=== PATIENT | male | born 1965 | race Caucasian/White ===

== ENCOUNTER → 2017-05-17 | Outpatient (CLI) | payer BC ==
[2017-05-17 15:10] VITALS: BP 168/93; PULSE 80; TEMP 98; BMI 46.2
--- NOTE | 2017-05-17 17:11 | P.HPBAR ---
Bariatric H&P - History & Physicial H&P Date: 05/17/17 History & Physicial: Visit/CC: presurgical diet Patient initial contact: Initial weight: 175.087 kg Initial weight in pounds: 386.00 Height: 6 ft Initial BMI: 52.3 Last weight: 235 Current weight: 154.63 kg Current weight in pounds: 340.90 Current BMI: 46.2 [place] body weight (based on NIH guidelines): 80.739 kg Excess body weight loss: 21.6% The patient is a 51 year-old M who presents for Bariatric Assessment. Patient presents today for sleeve gastrectomy consultation. He had a previous LAP- BAND. Patient developed a port site infection which required to have his LAP- BAND system removed in September 2015. At the time of his LAP-BAND removed patient weighed approximately 235 pounds. Today he weighs 340 pounds. When his LAP- BAND was initially placed a weighted approximate 400 pounds. The patient describes worsening pain due to his foot arthritis with his weight gain. He also feels that he is much more sedentary and has a tough time moving due to his weight gain. The patient wished to have a sleeve gastrectomy performed earlier but due to complications with his work schedule he was unable to schedule for a sleeve gastrectomy. Past Medical History Past Medical History: No Reported History, Osteoarthritis (OA) Additional Past Medical History / Comment(s): Currently having difficulting eating solid food, able to tolerate creamed soup and liquids and having fevers. Constipation, twisted bowel - resolved History of Any Multi-Drug Resistant Organisms: None Reported, MRSA Year Discovered:: 08/06/15 MDRO Source:: Abdomen Past Surgical History: Bariatric Surgery, Cholecystectomy Additional Past Surgical History / Comment(s): LAP BAND,[place] Apr,EGD W / BILIARY STENT 05-05-15 lap band removed - Past Anesthesia/Blood Transfusion Reactions: No Reported Reaction Additional Past Anesthesia/Blood Transfusion Reaction / Comm: NEVER HAS HAD B/P TRANSFUSION Past Psychological History: No Psychological Hx Reported Smoking Status: Current every day smoker Past Alcohol Use History: Occasional Additional Past Alcohol Use History / Comment(s): STARTED 1985 Past Drug Use History: None Reported - Past Family History Mother Family Medical History: Cancer Father Family Medical History: Diabetes Mellitus Additional Family Medical History / Comment(s): cardiac stents Surgical - Exam Vital Signs Temp Pulse BP 98 F 80 168/93 05/17/17 15:06 05/17/17 15:06 05/17/17 15:06 - General well developed, no distress - Eyes PERRL - ENT normal pinna - Neck no masses - Respiratory normal expansion - Cardiovascular Rhythm: regular - Abdomen Abdomen: soft, non tender Bariatric Assessment & Plan Plan: Morbid obesity with BMI 46. Patient has had 115 pound weight gain since his LAP -BAND was removed. Patient has a good understanding of the sleeve gastrectomy. We went over the risks and benefits of procedure including possible gastric staple line disruption, bleeding or perforation. The patient will be scheduled for EGD. We will attempt to obtain insurance authorization for sleeve gastrectomy. Bariatric Checklist Checklist: Plan: Checklist: EGD: 1. Hiatal hernia: 2. H. Pylori: HgbA1c: Vitamin D: Smoking: Current every day smoker Primary care physician referral: dr navarro Psychiatry clearance: Cardiology clearance: Sleep study: Diet journal: VTE risk score: VTE risk level: Rehab needs at discharge:
== END | disposition home or self-care (01) ==
LOC: BARWHC3 13:51
PROVIDERS: ATTEND Surgery
DX: Z01.818 Encounter for other preprocedural examination (principal); E66.01 Morbid (severe) obesity due to excess calories; F17.200 Nicotine dependence, unspecified, uncomplicated; Z68.42 Body mass index [BMI] 45.0-49.9, adult; Z98.84 Bariatric surgery status; Z90.49 Acquired absence of other specified parts of digestive tract
CPT/HCPCS: 99211

== ENCOUNTER 2017-05-25 09:50 | Day surgery (SDC) | payer BC ==
[2017-05-21 15:48] VITALS: BMI 46.5
[~2017-05-25 09:50] MED LIST: LACTATED RINGERS 1,000 ML IV SCH
[2017-05-25] MEDS ORDERED: LIDOCAINE 1% 20 ML VIAL (10MG/ML) FOR IV START INTRADERMA ONE (10:06)
[2017-05-25 10:16] VITALS: TEMP 97.8
[2017-05-25] MEDS ORDERED: PROPOFOL 10 MG/ML 20 ML VIAL IV ONE (11:20)
[2017-05-25] MEDS ORDERED: LABETALOL 5 MG/ML VIAL MDV ONE (11:20)
[2017-05-25] MEDS ORDERED: LIDOCAINE 1% INJ 10MG/ML (20 ML MDV) ONE (11:20)
[2017-05-25] MEDS ORDERED: MIDAZOLAM 2 MG/2 ML VIAL ONE (11:20)
[2017-05-25] MEDS ORDERED: KETAMINE 10 MG/ML 20 ML VIAL ONE (11:20)
[2017-05-25] MEDS ORDERED: fentaNYL (PF) 50 MCG/ML 2 ML AMP ONE (11:20)
[2017-05-25] MEDS ORDERED: GLYCOPYRROLATE 0.2 MG/ML 2 ML VIAL ONE (11:20)
--- NOTE | 2017-05-25 11:33 | P.GSHP ---
History of Present Illness H&P Date: 05/25/17 Chief Complaint: GERD, morbid obesity is a 51-year-old male who presents today for EGD. He's had issues with GERD. He is currently undergoing workup for sleeve gastrectomy. His BMI is 47. Past Medical History Past Medical History: GERD/Reflux, Hypertension, Osteoarthritis (OA), Thyroid Disorder Additional Past Medical History / Comment(s): no current rx for BP, bone spur in left foot History of Any Multi-Drug Resistant Organisms: None Reported, MRSA Date of last positivie culture/infection: 08/06/15 MDRO Source:: Abdomen Past Surgical History: Bariatric Surgery, Cholecystectomy Additional Past Surgical History / Comment(s): lap band/later removed, surgery to repair liver duct leak(stent)-stent later removed Past Anesthesia/Blood Transfusion Reactions: No Reported Reaction Additional Past Anesthesia/Blood Transfusion Reaction / Comment(s): . Smoking Status: Current every day smoker - Past Family History Mother Family Medical History: Cancer Father Family Medical History: Diabetes Mellitus Additional Family Medical History / Comment(s): cardiac stents Medications and Allergies Home Medications Medication Instructions Recorded Confirmed Type traMADol HCL [Ultram] 50 mg PO BID PRN 05/17/17 05/25/17 History HYDROcodone/APAP 7.5-325MG [[place] 1 tab PO [id number] PRN 05/21/17 05/25/17 History 7.5-325] Ibuprofen [Advil] 200 mg PO DIRECTED PRN 05/21/17 05/25/17 History Allergies Allergy/AdvReac Type Severity Reaction Status Date / Time No Known Allergies Allergy Verified 05/21/17 15:39 Surgical - Exam Vital Signs Temp Pulse Resp BP Pulse Ox 97.8 F 101 H 16 157/95 96 05/25/17 10:14 05/25/17 10:14 05/25/17 10:14 05/25/17 10:14 05/25/17 10:14 - General well developed - Eyes PERRL - ENT normal pinna, normal nares - Neck no masses - Respiratory normal expansion - Cardiovascular Rhythm: regular - Abdomen Abdomen: soft, non tender Assessment and Plan Assessment: GERD Morbid obesity We'll perform EGD.
--- NOTE | 2017-05-25 11:44 | P.OP ---
Date of Procedure: 05/25/17 Preoperative Diagnosis: GERD Morbid obesity, BMI 47 Postoperative Diagnosis: mild antral gastritis Mild esophagitis Procedure(s) Performed: EGD Anesthesia: MAC Surgeon: Arnold Gutiérrez Pathology: other (antrum, esophagus) Condition: stable Disposition: PACU Description of Procedure: patient's placed on the endoscopy table in the lateral position. He received IV sedation. The gastroscope placed oropharynx and passed in the esophagus and stomach. Scope was then placed through the pylorus. The first and second portion of the duodenum appeared normal. Scope was then brought back the antrum and this was mildly inflamed. A biopsies performed. The scope was unretroflexed and remainder stomach appeared normal. The GE junction was at 440 cm. There is known to the hiatal hernia. The distal esophagus was minimal inflamed a biopsies performed. The proximal esophagus appeared normal. Scope was withdrawn for patient.
[2017-05-25 12:13] VITALS: BP 156/102; PULSE 88; RESP 16
== END 2017-05-25 12:22 | disposition home or self-care (01) ==
LOC: ORWHC2ENDO 09:50
PROVIDERS: ATTEND Surgery
DX: K21.0 Gastro-esophageal reflux disease with esophagitis (principal); K29.50 Unspecified chronic gastritis without bleeding; K44.9 Diaphragmatic hernia without obstruction or gangrene; I10 Essential (primary) hypertension; E07.9 Disorder of thyroid, unspecified; M19.90 Unspecified osteoarthritis, unspecified site; E66.01 Morbid (severe) obesity due to excess calories; Z68.42 Body mass index [BMI] 45.0-49.9, adult; F17.210 Nicotine dependence, cigarettes, uncomplicated; Z86.14 Personal history of Methicillin resistant Staphylococcus aureus infection; Z98.84 Bariatric surgery status; Z83.3 Family history of diabetes mellitus
CPT/HCPCS: 43239; 88305; 88342; J2250; J2001; J3010; J2704

== ENCOUNTER → 2017-06-07 | Outpatient (CLI) | payer BC ==
--- NOTE | 2017-06-07 11:55 | EST ---
EXERCISE STRESS AGE: 51 SEX: M HT: 6' WT: 352 PROTOCOL: Cardiolite Levi Stress Test STAGE: 3 DURATION OF EXERCISE: 7:30 HEART RATE REST: 111 BLOOD PRESSURE REST: 169/94 MAXIMUM HEART RATE ACHIEVED: 152 MAXIMUM BLOOD PRESSURE: 235/74 85% MPHR: 145 100% MPHR: 171 METS: 9.1 INDICATIONS: Preoperative. CLINICAL INFORMATION: STRESS DATA: Pretesting physical examination showed a heart rate of 111, pressure is 169/64 mmHg. Baseline EKG showed sinus rhythm. The patient exercised on the treadmill according to Levi protocol for a total of 7 minutes and 30 seconds and achieved 9.1 METS. Max heart rate was 152, which is about which is about 89% of maximum predicted heart rate. Maximum blood pressure was 235/74 mmHg. Clinically. the patient did not have any symptoms and the EKG did not show any significant ST or T-wave abnormalities consistent with ischemia. CONCLUSION: 1. Good exercise capacity. 2. Normal EKG in response to exercise. 3. Please follow up on the Cardiolite portion of separate report for the Radiology Department. MMODL / IJN: [id number] /
--- NOTE | 2017-06-07 19:41 | NM ---
EXAMINATION TYPE: NM stress cardiolite complete DATE OF EXAM: 06/07/2017 COMPARISON: NONE HISTORY: Abnormal EKG, R 94.31 TECHNIQUE: After the intravenous administration of 27.2 mCi Tc 99m Sestamibi - Rest images obtained 45 minutes post injection. The patient exercised using a ALESIA protocol and 1 minute prior to peak exercise was injected with 11.6 mCi Tc 99m Sestamibi - Stress images obtained 10 minutes post injecti on. FINDINGS: Targeted heart rate was achieved during performance of the study. Review of stress and rest SPECT sandip ges demonstrates no distinct perfusion abnormality. Gated analysis shows normal wall motion with an estimated left ventricular ejection fraction of 56 %. IMPRESSION: No scintigraphic evidence for reversible ischemia. Systolic hypertension noted on the documentation d uring the course of the exam.
== END | disposition home or self-care (01) ==
LOC: RADNMMAIN 08:34
PROVIDERS: ATTEND Internal Medicine
DX: I10 Essential (primary) hypertension (principal)
CPT/HCPCS: 93017; 78452; A9500

== ENCOUNTER → 2017-06-14 | Outpatient (CLI) | payer BC ==
[2017-06-14 12:53] LABS: Basophils # (A) 0.1 k/uL (0-0.2); Basophils % (A) 1 %; Eosinophils # (A) 0.2 k/uL (0-0.7); Eosinophils % (A) 3 %; HCT 47.4 % (39.0-53.0); HGB 15.7 gm/dL (13.0-17.5); Lymphocytes # (A) 1.5 k/uL (1.0-4.8); Lymphocytes % (A) 25 %; MCHC 33.1 g/dL (31.0-37.0); MCV 90.8 fL (80.0-100.0); Mean Platelet Volume 6.6; Monocytes # (A) 0.3 k/uL (0-1.0); Monocytes % (A) 5 %; Neutrophils % (A) 64 %; Platelet Count 256 k/uL (150-450); RBC 5.22 m/uL (4.30-5.90); RDW 12.7 % (11.5-15.5); WBC 6.2 k/uL (3.8-10.6)
[2017-06-14 12:56] LABS: ALT 69 U/L (21-72); AST 29 U/L (17-59); Albumin 4.4 g/dL (3.5-5.0); Alkaline Phosphatase 83 U/L (38-126); Anion Gap 11 mmol/L; Blood Urea Nitrogen 16 mg/dL (9-20); Calcium 10.2 mg/dL (8.4-10.2); Carbon Dioxide 26 mmol/L (22-30); Chloride 106 mmol/L (98-107); Glucose 90 mg/dL (74-99); Potassium 4.8 mmol/L (3.5-5.1); Sodium 143 mmol/L (137-145); Total Bilirubin 0.4 mg/dL (0.2-1.3); Total Protein 7.4 g/dL (6.3-8.2)
== END | disposition home or self-care (01) ==
LOC: LABPAT 12:07
PROVIDERS: ATTEND Surgery
DX: Z01.812 Encounter for preprocedural laboratory examination (principal)
CPT/HCPCS: 36415; 80053; 85025

== ENCOUNTER → 2017-06-14 | Outpatient (CLI) | payer BC ==
[2017-06-14 11:46] VITALS: BMI 45.3
== END | disposition home or self-care (01) ==
LOC: BARWHC3 06-07 11:26
PROVIDERS: ATTEND Surgery
DX: E66.01 Morbid (severe) obesity due to excess calories (principal); Z68.42 Body mass index [BMI] 45.0-49.9, adult
CPT/HCPCS: 97804

== ENCOUNTER → 2017-07-14 | Outpatient (CLI) | payer BC ==
[2017-07-14 09:53] VITALS: BMI 40.4
[2017-07-14 09:58] VITALS: BP 121/88; PULSE 109; TEMP 98
--- NOTE | 2017-07-14 10:13 | P.HPBAR ---
Bariatric H&P - History & Physicial H&P Date: 07/14/17 History & Physicial: Visit/CC: two week post op visit Patient initial contact: Initial weight: 175.087 kg Initial weight in pounds: 386.00 Height: 6 ft Initial BMI: 52.3 Last weight: Current weight: 135.307 kg Current weight in pounds: 298.30 Current BMI: 40.4 [place] body weight (based on NIH guidelines): 80.739 kg Excess body weight loss: 42.1% The patient is a 51 year-old M who presents for Bariatric Assessment. The patient presents today for sleeve gastrectomy follow-up. He is doing excellent. He's had some minimal GERD. Past Medical History Past Medical History: GERD/Reflux, Hypertension, Osteoarthritis (OA), Thyroid Disorder Additional Past Medical History / Comment(s): no current rx for BP, bone spur in left foot History of Any Multi-Drug Resistant Organisms: None Reported, MRSA Year Discovered:: 08/06/15 MDRO Source:: Abdomen Past Surgical History: Bariatric Surgery, Cholecystectomy Additional Past Surgical History / Comment(s): lap band/later removed, surgery to repair liver duct leak(stent)-stent later removed sleeve gastrectomy 07-01-17 Past Anesthesia/Blood Transfusion Reactions: No Reported Reaction Additional Past Anesthesia/Blood Transfusion Reaction / Comm: . Past Psychological History: No Psychological Hx Reported Smoking Status: Current every day smoker Past Alcohol Use History: Occasional Additional Past Alcohol Use History / Comment(s): STARTED 1985, smokes < 1 PPD Past Drug Use History: None Reported - Past Family History Mother Family Medical History: Cancer Father Family Medical History: Diabetes Mellitus Additional Family Medical History / Comment(s): cardiac stents Surgical - Exam Vital Signs Temp Pulse BP 98.0 F 109 H 121/88 07/14/17 09:56 07/14/17 09:56 07/14/17 09:56 - General well developed, no distress - Eyes PERRL - ENT normal pinna - Neck no masses - Respiratory normal expansion - Cardiovascular Rhythm: regular - Abdomen Abdomen: soft, non tender Bariatric Assessment & Plan Plan: Status post sleeve yesterday. Patient is doing quite well. He will follow-up in 2 weeks. He is scheduled see the dietitian today. Bariatric Checklist Checklist: Plan: Checklist: EGD: 1. Hiatal hernia: 2. H. Pylori: HgbA1c: Vitamin D: Smoking: Current every day smoker Primary care physician referral: dr navarro Psychiatry clearance: Cardiology clearance: Sleep study: Diet journal: VTE risk score: VTE risk level: Rehab needs at discharge:
== END | disposition home or self-care (01) ==
LOC: BARWHC3 09:31
PROVIDERS: ATTEND Surgery
DX: Z09 Encounter for follow-up examination after completed treatment for conditions other than malignant neoplasm (principal); K21.9 Gastro-esophageal reflux disease without esophagitis; I10 Essential (primary) hypertension; M19.90 Unspecified osteoarthritis, unspecified site; F17.200 Nicotine dependence, unspecified, uncomplicated; F10.20 Alcohol dependence, uncomplicated; E07.9 Disorder of thyroid, unspecified; Z98.84 Bariatric surgery status; Z90.49 Acquired absence of other specified parts of digestive tract
CPT/HCPCS: 97803; 99211

== ENCOUNTER → 2017-07-26 | Outpatient (CLI) | payer BC ==
[2017-07-26 14:24] VITALS: BMI 41.0
[2017-07-26 15:01] VITALS: BP 178/81; PULSE 96; RESP 16; TEMP 98.7
--- NOTE | 2017-07-26 16:26 | P.HPBAR ---
Bariatric H&P - History & Physicial H&P Date: 07/26/17 History & Physicial: Visit/CC: post surg sleeve Patient initial contact: Initial weight: 175.087 kg Initial weight in pounds: 386.00 Height: 6 ft Initial BMI: 52.3 Last weight: Current weight: 137.121 kg Current weight in pounds: 302.30 Current BMI: 41.0 [place] body weight (based on NIH guidelines): 80.739 kg Excess body weight loss: 40.2% The patient is a 51 year-old M who presents for Bariatric Assessment. Patient presents today for sleeve gastrectomy fall. He's done very well. He has minimal complaints. He's had some minor GERD. He denies any dysphagia. Past Medical History Past Medical History: GERD/Reflux, Hypertension, Osteoarthritis (OA), Thyroid Disorder Additional Past Medical History / Comment(s): no current rx for BP, bone spur in left foot History of Any Multi-Drug Resistant Organisms: None Reported, MRSA Year Discovered:: 08/06/15 MDRO Source:: Abdomen Past Surgical History: Bariatric Surgery, Cholecystectomy Additional Past Surgical History / Comment(s): lap band/later removed, surgery to repair liver duct leak(stent)-stent later removed sleeve gastrectomy 07-01-17 Past Anesthesia/Blood Transfusion Reactions: No Reported Reaction Additional Past Anesthesia/Blood Transfusion Reaction / Comm: . Past Psychological History: No Psychological Hx Reported Smoking Status: Current every day smoker Past Alcohol Use History: Occasional Additional Past Alcohol Use History / Comment(s): STARTED 1985, smokes < 1 PPD Past Drug Use History: None Reported - Past Family History Mother Family Medical History: Cancer Father Family Medical History: Diabetes Mellitus Additional Family Medical History / Comment(s): cardiac stents Surgical - Exam Vital Signs Temp Pulse Resp BP 98.7 F 96 16 178/81 07/26/17 14:57 07/26/17 14:57 07/26/17 14:57 07/26/17 14:57 - General well developed, no distress - Eyes PERRL - ENT normal pinna - Neck no masses - Respiratory normal expansion - Cardiovascular Rhythm: regular - Abdomen Abdomen: soft, non tender Bariatric Assessment & Plan Plan: Status post sleeve yesterday. Patient did well. His GERD is minimal and will be observed. He'll follow-up in one month. Bariatric Checklist Checklist: Plan: Checklist: EGD: 1. Hiatal hernia: 2. H. Pylori: HgbA1c: Vitamin D: Smoking: Current every day smoker Primary care physician referral: dr navarro Psychiatry clearance: Cardiology clearance: Sleep study: Diet journal: VTE risk score: VTE risk level: Rehab needs at discharge:
== END | disposition home or self-care (01) ==
LOC: BARWHC3 13:51
PROVIDERS: ATTEND Surgery
DX: Z48.815 Encounter for surgical aftercare following surgery on the digestive system (principal); F17.200 Nicotine dependence, unspecified, uncomplicated; K21.9 Gastro-esophageal reflux disease without esophagitis; E66.01 Morbid (severe) obesity due to excess calories; Z71.3 Dietary counseling and surveillance; Z98.84 Bariatric surgery status; Z68.41 Body mass index [BMI] 40.0-44.9, adult
CPT/HCPCS: 97803; 99211

== ENCOUNTER → 2022-12-26 | Outpatient (CLI) | payer BC ==
--- NOTE | 2022-12-26 11:15 | XR ---
EXAMINATION TYPE: XR chest 2V DATE OF EXAM: 12/26/2022 11:07 AM COMPARISON: CTA chest 05/03/2015 TECHNIQUE: XR chest 2V Frontal and lateral views of the chest. CLINICAL INDICATION:Male, 57 years old with history of R63.4 WEIGHT LOSS; FINDINGS: Lungs/Pleura: There is no evidence of pleural effusion, focal consolidation, or pneumothorax. Pulmonary vascularity: Unremarkable. Heart/mediastinum: Cardiomediastinal silhouette is unremarkable. Musculoskeletal: Multiple level degenerative disc disease changes seen throughout the spine. IMPRESSION: No acute cardiopulmonary disease/process.
[2022-12-26 11:25] LABS: Appearance,Urine Clear (Clear); Bilirubin,Urine Negative (Negative); Blood,Urine Negative (Negative); Color,Urine Yellow; Glucose,Urine (UA) Negative (Negative); Ketones,Urine Negative (Negative); Leukocyte Esterase,Urine Negative (Negative); Nitrite,Urine Negative (Negative); Protein,Urine Trace (Negative); Specific Gravity,Urine 1.017 (1.001-1.035)
[2022-12-26 23:13] LABS: HCT 43.3 % (39.6-50.0); HGB 13.7 d/dL (13.0-17.0); MCH 29.1 pg (27.0-32.0); MCHC 31.6 d/dL (32.0-37.0); MCV 92.1 FL (80.0-97.0); Mean Platelet Volume 9.3 FL (9.5-12.2); NRBC Per 100 WBC 0 X 10*3/uL (0.00-0.01); Platelet Count 215 X 10*3/uL (140-440); RDW 13.7 % (11.5-14.5)
[2022-12-26 23:35] LABS: Prostate Specific Antigen 0.7 ng/mL (0.000-3.500)
== END | disposition home or self-care (01) ==
LOC: LABWHC1 10:31
PROVIDERS: ATTEND Internal Medicine
DX: R63.4 Abnormal weight loss (principal)
CPT/HCPCS: 36415; 71046; 81003; 82607; 82947; 84153; 85027

== ENCOUNTER → 2023-01-04 | Outpatient (CLI) | payer BC ==
[2023-01-04 14:17] VITALS: BP 132/79; PULSE 80; TEMP 97.7; BMI 24.5
--- NOTE | 2023-01-04 16:40 | FL ---
EXAMINATION TYPE: FL barium swallow DATE OF EXAM: 01/04/2023 3:09 PM COMPARISON: 01/28/2020 CLINICAL INDICATION:Male, 57 years old with history of R13.10 DYSPHAGIA; PHH, TECHNIQUE: The procedure was explained and patient history elicited. All patient questions were ans wered prior to start of procedure. Multiple spot fluoroscopic images of the esophagus were obtained a fter the oral ingestion of effervescent crystals and liquid barium as the contrast agent. Fluoroscopic time: 37 seconds Fluoroscopic images: 0 Radiographs taken: 105 DAP: 1380 cGycm2 FINDINGS: And post surgical changes of the distal esophagus with outpouching seen posteriorly. There is residual contrast in the distal esophagus which persists after swallow. Gastroesophageal reflux wa s noted all patient was standing. Tertiary contractions are present. No focal stricture or ulceration . No masses definitively visualized. IMPRESSION: 1. Mild esophageal dysmotility with gastroesophageal reflux. 2. Posterior distal esophagus outpouching suggestive diverticulum. This could be postsurgical in elpidio ology. 3. Residual contrast in the distal esophagus which has delayed emptying into the stomach at the end of each swallow.
== END ==
LOC: BARWHC3 13:41
PROVIDERS: ATTEND Surgery
DX: K21.9 Gastro-esophageal reflux disease without esophagitis (principal); R13.10 Dysphagia, unspecified; K22.4 Dyskinesia of esophagus; F17.200 Nicotine dependence, unspecified, uncomplicated
CPT/HCPCS: 74220; 99211

== ENCOUNTER 2023-01-14 08:01 | Day surgery (SDC) | payer BC ==
[2023-01-13 09:51] VITALS: BMI 23.7
[~2023-01-14 08:01] MED LIST changes: +LIDOCAINE 1% (10MG/ML) FOR IV START INTRADERMA PRN; +ONDANSETRON 4 MG/2 ML VIAL IVP PRN
[2023-01-14 08:20] VITALS: TEMP 97.3
[2023-01-14] MEDS ORDERED: PROPOFOL 10 MG/ML 20 ML VIAL IV ONE (08:29)
--- NOTE | 2023-01-14 08:34 | P.GSHP ---
History of Present Illness H&P Date: 01/14/23 Chief Complaint: GERD, weight loss, screening colonoscopy Is a 57-year-old male who had significant gastrectomy many years ago. Patient's had increased weight loss over the last 1 year. Been safer EGD her GERD symptoms and screening colonoscopy. Patient never had a colonoscopy before. Past Medical History Past Medical History: GERD/Reflux, Hypertension, Osteoarthritis (OA), Thyroid Disorder Additional Past Medical History / Comment(s): no current rx for BP OR THYROID, bone spur in left foot, HAS LOST 80LBS IN PAST 6 MONTHS FOR UNKNOWN REASON AND CHANGE IN BOWEL HABITS History of Any Multi-Drug Resistant Organisms: MRSA Date of last positivie culture/infection: 08/06/15 MDRO Source:: Abdomen Past Surgical History: Bariatric Surgery, Cholecystectomy Additional Past Surgical History / Comment(s): lap band/later removed, surgery to repair liver duct leak(stent)-stent later removed, sleeve gastrectomy 07-01-17, EGD Past Anesthesia/Blood Transfusion Reactions: No Reported Reaction Additional Past Anesthesia/Blood Transfusion Reaction / Comment(s): . Smoking Status: Former smoker - Past Family History Mother Family Medical History: Cancer Father Family Medical History: Diabetes Mellitus Additional Family Medical History / Comment(s): cardiac stents Medications and Allergies Home Medications Medication Instructions Recorded Confirmed Type Escitalopram [Lexapro] 10 mg PO DAILY 01/04/23 01/13/23 History Allergies Allergy/AdvReac Type Severity Reaction Status Date / Time No Known Allergies Allergy Verified 01/13/23 09:41 Surgical - Exam Vital Signs Temp Pulse Resp BP Pulse Ox 97.3 F L 71 18 141/78 98 01/14/23 08:17 01/14/23 08:17 01/14/23 08:17 01/14/23 08:17 01/14/23 08:17 - General well developed, well nourished, no distress - Eyes PERRL - ENT normal pinna - Neck no masses - Respiratory normal expansion - Cardiovascular Rhythm: regular - Abdomen Abdomen: soft, non tender Assessment and Plan Assessment: GERD Weight loss Screening colonoscopy
--- NOTE | 2023-01-14 09:06 | P.OP ---
Date of Procedure: 01/14/23 Preoperative Diagnosis: Weight loss GERD Screening colonoscopy Postoperative Diagnosis: Mild antral gastritis Normal colonoscopy Tortuous colon Procedure(s) Performed: EGD Colonoscopy Anesthesia: MAC Surgeon: Arnold Gutiérrez Pathology: other (Antrum) Condition: stable Disposition: PACU Description of Procedure: Patient's placed on the endoscopy table in the lateral position. He received IV sedation. The gastro-/oropharynx passed in the esophagus and stomach. Scope was then placed through the pylorus. The first and second portion of the duodenum. Scope was then brought back the antrum was minimally inflamed. A biopsies performed. The patient a previous gastric sleeve. There is no evide nce of information or erosions the gastric sleeve. GE junction was at 40 cm per the distal esophagus appeared normal. The proximal esophagus appeared normal. Scope withdrawn for patient. Next digital rectal exam was performed. This revealed no abnormalities. The flexible colonoscope was then placed patient anus and passed throughout the colon. The colon was very tortuous. The right colon was visualized with tortuosity of the colon. The scope was withdrawn. The the transverse colon descending colon and sigmoid colon appeared normal. Scope was brought back the rectum this appeared normal. Scope withdrawn for patient.
[2023-01-14 09:18] VITALS: BP 138/74; PULSE 78; RESP 18
== END 2023-01-14 09:31 | disposition home or self-care (01) ==
LOC: ORWHC2ENDO 08:01
PROVIDERS: ATTEND Surgery
DX: Z12.11 Encounter for screening for malignant neoplasm of colon (principal); K21.9 Gastro-esophageal reflux disease without esophagitis; K29.50 Unspecified chronic gastritis without bleeding; K56.2 Volvulus; I10 Essential (primary) hypertension; R63.4 Abnormal weight loss; M19.90 Unspecified osteoarthritis, unspecified site; Z90.49 Acquired absence of other specified parts of digestive tract; Z87.891 Personal history of nicotine dependence; Z83.3 Family history of diabetes mellitus; Z79.899 Other long term (current) drug therapy
CPT/HCPCS: 45378; 88305; 43239; J2704